=== PATIENT | male | born 1995 | race Caucasian/White ===

== ENCOUNTER 2024-04-05 06:49 | Emergency (ER) | payer OTHER ==
--- NOTE | 2024-04-05 07:33 | ED ---
General Adult HPI - General Chief complaint: Extremity Injury, Lower Stated complaint: [facility] - Knee injury Time Seen by Provider: 04/05/24 07:10 Source: patient, RN notes reviewed, old records reviewed Mode of arrival: ambulatory - History of Present Illness Initial comments: This is a 28-year-old male who presents to the emergency department. Patient complains of a left knee pain. Patient states he is a [employer] and he was chasing somebody down into a [place]. Patient states when he jumped down he felt a little pop in his knee but he continued pursuing the person. Patient states that occurred a couple of days ago and since then it is pain has had some swelling above the knee and to feels a little bit of a crunching sensation sometimes when he moves his knee. Patient states he feels stable on his knee he is continuing to do his job and having no problems doing it. - Related Data Allergies Allergy/AdvReac Type Severity Reaction Status Date / Time No Known Allergies Allergy Verified 04/05/24 06:58 Review of Systems ROS Statement: Those systems with pertinent positive or pertinent negative responses have been documented in the HPI. ROS Other: All systems not noted in ROS Statement are negative. Past Medical History Past Medical History: No Reported History History of Any Multi-Drug Resistant Organisms: None Reported Past Surgical History: No Surgical Hx Reported Past Psychological History: No Psychological Hx Reported Smoking Status: Never smoker Past Alcohol Use History: None Reported Past Drug Use History: None Reported General Exam - General Exam Comments Initial Comments: GENERAL Patient is well-developed and well-nourished. Patient is in mild distress. EYES Patient's pupils are equal and round. Extraocular motion is intact SKIN Unremarkable NEURO The patient is alert and oriented A&Ox3 PYSCH Patient has normal interpersonal interactions. MUSCULOSKELETAL Left knee has no ligament laxity there is an effusion in the suprapatellar region Course Vital Signs 04/05/24 06:55 Temperature 97.9 F Pulse Rate 86 Respiratory 18 Rate Blood Pressure 155/103 O2 Sat by Pulse 99 Oximetry Medical Decision Making - Medical Decision Making Was pt. sent in by a medical professional or institution (, PA, SUSPENDER MAKER, urgent care, hospital, or skilled nursing...) When possible be specific @ -No Did you speak to anyone other than the patient for history (EMS, parent, family, police, friend...)? What history was obtained from this source @ -No Did you review nursing and triage notes (agree or disagree)? Why? @ -I reviewed and agree with nursing and triage notes Were old charts reviewed (outside hosp., previous admission, EMS record, old EKG, old radiological studies, urgent care reports/EKG's, skilled nursing records)? Report findings @ -No old charts were reviewed Differential Diagnosis? @ -Differential Musculoskeletal Muscular strain, contusion, ligament sprain, fracture, arthritis, septic arthritis, bursitis, cellulitis, muscle spasm, nerve compression, DVT, arterial occlusion, herpes zoster, electrolyte abnormality, tumor.... This is not meant to be in all inclusive list EKG interpreted by me (3pts min.). @ -As above X-rays interpreted by me (1pt min.). @ -X-ray of the left knee shows no acute abnormality except for effusion CT interpreted by me (1pt min.). @ -None done U/S interpreted by me (1pt. min.). @ -None done What testing was considered but not performed or refused? (CT, X-rays, U/S, labs)? Why? @ -None What meds were considered but not given or refused? Why? @ -None Did you discuss the management of the patient with other professionals (professionals i.e. , PA, SUSPENDER MAKER, lab, RT, psych nurse, social media developer, sort line, teacher, light armored reconnaissance officer, spring encaser)? Give summary @ -No Was smoking cessation discussed for >3mins.? @ -No Was critical care preformed (if so, how long)? @ -No Were there social determinants of health that impacted care today? How? (Homelessness, low income, unemployed, alcoholism, drug addiction, transportation, low edu. Level, literacy, decrease access to med. care, residential, rehab)? @ -No Was there de-escalation of care discussed even if they declined (Discuss DNR or withdrawal of care, Hospice)? DNR status @ -No What co-morbidities impacted this encounter? (DM, HTN, Smoking, COPD, CAD, Cancer, CVA, ARF, Chemo, Hep., AIDS, mental health diagnosis, sleep apnea, morbid obesity)? @ -None Was patient admitted / discharged? Hospital course, mention meds given and route, prescriptions, significant lab abnormalities, going to OR and other pertinent info. @ -Patient was able to ambulate had no ligament laxity and did have an effusion he also states he has a knee brace at home so he will be wearing that until he follows up with orthopedics. Patient did not want to wear our knee immobilizer because it was too restricting and he wanted to continue to work Undiagnosed new problem with uncertain prognosis? @ -No Drug Therapy requiring intensive monitoring for toxicity (Heparin, Nitro, Insulin, Cardizem)? @ -No Were any procedures done? @ -No Diagnosis/symptom? @ -Left knee sprain Acute, or Chronic, or Acute on Chronic? @ -Acute Uncomplicated (without systemic symptoms) or Complicated (systemic symptoms)? @ -Uncomplicated Side effects of treatment? @ -No Exacerbation, Progression, or Severe Exacerbation? @ -No Poses a threat to life or bodily function? How? (Chest pain, [place], [place], pneumonia, PE, COPD, DKA, ARF, appy, cholecystitis, CVA, Diverticulitis, Homicidal, Suicidal, threat to staff... and all critical care pts) @ -No Disposition Clinical Impression: Knee sprain Disposition: HOME SELF-CARE Instructions (If sedation given, give patient instructions): Knee Sprain (ED) Additional Instructions: Patient should take Motrin 600 mg every 6 hours as needed for pain. Patient should follow-up with an orthopedic surgeon. Patient should wear knee support brace Is patient prescribed a controlled substance at d/c from ED?: No Referrals: Nonstaff,Physician [Primary Care Provider] - 1-2 days Time of Disposition: 07:53
--- NOTE | 2024-04-05 07:57 | XR ---
EXAMINATION TYPE: XR knee complete LT DATE OF EXAM: 04/05/2024 7:49 AM INDICATION: Patient age:Male; 28 years old; Reason for study: Trauma; [facility]. pain COMPARISON: None. TECHNIQUE: The Left knee(s) was examined in Frontal, lateral and oblique projections. FINDINGS: No evidence of any acute osseous pathology, or joint effusion is noted. Mild anterior kne e soft tissue swelling. Suprapatellar spurring demonstrated. IMPRESSION: 1. No acute osseous pathology. 2. Mild anterior knee soft tissue swelling. [facility], , 04/05/2024 7:55 AM
[2024-04-05 08:25] VITALS: BP 152/99; PULSE 89; RESP 15; TEMP 98
== END 2024-04-05 08:27 | disposition home or self-care (01) ==
LOC: EC 06:49
DX: S83.92XA Sprain of unspecified site of left knee, initial encounter (principal); W16.822A Jumping or diving into other water striking bottom causing other injury, initial encounter; Y93.39 Activity, other involving climbing, rappelling and jumping off
CPT/HCPCS: 99283